=== PATIENT | female | born 1950 | race Caucasian/White ===

== ENCOUNTER 2016-09-26 07:21 | Emergency (ER) | payer MEDICARE ==
[2016-09-26] MEDS ORDERED: OXYMETAZOLINE HCL 0.05% 30 SPRAYS/BOT NS ONE (07:43)
== END 2016-09-26 09:51 | disposition home or self-care (01) ==
LOC: ED 07:21
DX: R04.0 Epistaxis (principal); I10 Essential (primary) hypertension
CPT/HCPCS: 99282 ×2; A9270